=== PATIENT | female | born 1985 | race Two or more races ===

== ENCOUNTER 2017-09-24 17:18 | Emergency (ER) | payer OTHER ==
[~2017-09-24] VITALS: Ht 170.2 cm; Wt 60.9 kg
[2017-09-24 17:18] VITALS: BP 124/85
[2017-09-24] MEDS ORDERED: IBUP-1022 PO (17:48)
--- NOTE | 2017-09-24 18:20 | REP ---
Left hand series: Four views: History: Trauma. Findings: Four views of the left hand demonstrate normal bones, joints and soft tissues. No fracture or subluxation is seen. Impression: Negative left hand radiographs. Signed by Nikos Benítez MD 09/24/2017 07:55 P
== END 2017-09-24 18:04 | disposition home or self-care (01) ==
LOC: M ED 17:18
DX: S60.042A Contusion of left ring finger without damage to nail, initial encounter (principal); W20.8XXA Other cause of strike by thrown, projected or falling object, initial encounter; Y92.39 Other specified sports and athletic area as the place of occurrence of the external cause; Y93.9 Activity, unspecified; Y99.9 Unspecified external cause status

== ENCOUNTER 2018-09-08 16:07 | Emergency (ER) | payer OTHER | END 2018-09-08 17:26 | disposition home or self-care (01) | LOC: M ED 16:07 | DX: S00.33XA Contusion of nose, initial encounter (principal); Y93.6A Activity, physical games generally associated with school recess, summer camp and children | CPT/HCPCS: 70160 ==